=== PATIENT | male | born 1985 | race African-American/Black ===

== ENCOUNTER 2025-04-08 13:19 | Emergency (ER) | payer OTHER ==
[~2025-04-08] VITALS: Ht 182.9 cm; Wt 86.0 kg
[2025-04-08 13:23] VITALS: BP 129/85; PULSE 77; RESP 18; TEMP 36.7; O2SAT 100
[2025-04-08] MEDS: FLUORESCEIN SODIUM 1MG/STRIP LEFTEYE ONE (14:15)
[2025-04-08] MEDS: TETRACAINE 0.5% OPHTH DROPS 4ML LEFTEYE ONE (14:15)
[2025-04-08] MEDS ORDERED: OCUFLX LEFTEYE (14:40)
== END 2025-04-08 14:49 | disposition home or self-care (01) ==
LOC: ER 13:19
DX: S05.00XA Injury of conjunctiva and corneal abrasion without foreign body, unspecified eye, initial encounter (principal); Z98.890 Other specified postprocedural states; X58.XXXA Exposure to other specified factors, initial encounter; Y93.89 Activity, other specified; Y92.89 Other specified places as the place of occurrence of the external cause; Y99.8 Other external cause status
CPT/HCPCS: 99283